=== PATIENT | female | born 1945 | race Caucasian/White ===

== ENCOUNTER → 2017-01-30 | Outpatient (CLI) | payer OTHER ==
--- NOTE | ~2017-01-30 | US140 ---
[facility] A Service of [facility] & [facility] RADIOLOGY TEXT RESULTS PATIENT: SUSI BUTCHER LOCATION: CNIV : 41 UNIT #: [id number] AGE: [address]: Ingrid Peters MD SEX: F ORDER DR: [id number] [facility] [address] [place], [place] [address] [id number] O MR#: [id number] Acc #: [id number] NAME: SUSI BUTCHER : 1945 SEX: F STUDY DATE/TIME: 01/30/2017 12:05 UNIT: [facility] ROOM: STUDY DESCRIPTION: [facility] Veins Unilat or Ltd Stdy Attending Physician: Ingrid Peters M.D. Referring Physician: Ingrid Peters M.D. Ordering Physician: Ingrid Peters M.D. Primary Care Physician: Ingrid Peters M.D. MEDICAL IMAGING REPORT This report is preliminary unless electronic signature is present EXAM Left upper extremity venous duplex, 01/30/2017 HISTORY Left arm pain for 3 weeks. FINDINGS Venous duplex imaging of the left upper extremity reveals patent internal jugular, subclavian, axillary and basilic and brachial and cephalic veins. No evidence of DVT is seen. IMPRESSION No evidence of DVT is seen in the left upper extremity. Dictated by... Rashard Mckinnon TD: 01/31/2017 03:55 JOB #: [id number] MEDICAL IMAGING REPORT Page 1 of 1
== END | disposition home or self-care (01) ==
LOC: CNIV 01-25 12:00
DX: M79.602 Pain in left arm (principal)
CPT/HCPCS: 93971